=== PATIENT | female | born 1960 | race Caucasian/White ===

== ENCOUNTER 2016-04-16 09:02 | Day surgery (SDC) | payer BC ==
[~2016-04-16] VITALS: Ht 168.9 cm; Wt 75.2 kg
[~2016-04-16 09:02] MED LIST: ALLERGY4 MG PO; BLACK CHERRY; CLEOCIN HC150 MG/CAP PO; CRANBERRY FRUI475 MG PO; CYMBALTA 60MG60 MG PO; ESTRACE 1MG1 MG/TAB PO; FLONASE NASAL S16 GM NS; MULTIPLE VITAMI1 CAP PO; PROBIOTIC FORMU1 CAP PO; PROTONIX 40MG T40 MG PO; [UNRECOGNIZED DRUG - OTHER] TD
[2016-04-16] MEDS ORDERED: AMITIZA 8MCG8 MCG PO (09:27)
[2016-04-16] MEDS ORDERED: MOBIC15 MG PO (09:27)
[2016-04-16] MEDS ORDERED: NEXIUM 40MG40 MG PO (09:28)
[2016-04-16] MEDS ORDERED: SINGULAIR 110 MG/TAB PO (09:29)
[2016-04-16 10:05] VITALS: BP 118/65; PULSE 90; TEMP 97.7
[2016-04-16 10:50] VITALS: BP 135/75; PULSE 81; TEMP 97.2
[2016-04-16 11:05] VITALS: BP 128/58; PULSE 79
[2016-04-16 11:20] VITALS: BP 106/75; PULSE 82
[2016-04-16 11:35] VITALS: BP 117/43; PULSE 81
[2016-04-16 12:05] VITALS: BP 117/59; PULSE 90
== END 2016-04-16 12:30 | disposition home or self-care (01) ==
LOC: SDCO 09:02
DX: R05 Cough (principal); R09.3 Abnormal sputum; M41.9 Scoliosis, unspecified; Z86.19 Personal history of other infectious and parasitic diseases
CPT/HCPCS: J1956; J2704; J2920; J7120

== ENCOUNTER → 2016-05-22 | Outpatient (CLI) | payer BC ==
[~2016-05-22] MED LIST changes: +AMITIZA 8MCG8 MCG PO; +MOBIC15 MG PO; +NEXIUM 40MG40 MG PO; +SINGULAIR 110 MG/TAB PO
== END ==
LOC: COL.PUL 09:39
DX: R06.02 Shortness of breath (principal)
CPT/HCPCS: J7674

== ENCOUNTER → 2017-01-21 | Outpatient (CLI) | payer BC | LOC: COL.RAD 08:03 | DX: R14.2 Eructation (principal); R68.81 Early satiety; R11.0 Nausea; K58.9 Irritable bowel syndrome, unspecified | CPT/HCPCS: A9541 ==

== ENCOUNTER → 2023-08-29 | Outpatient (CLI) | payer OTHER ==
[~2023-08-29] MED LIST changes: +Iohexol 300 - 100 ML VIAL IV ONE; +NS 100 ML IV ONE
== END ==
LOC: COL.RAD 13:12
DX: R59.1 Generalized enlarged lymph nodes (principal); R91.8 Other nonspecific abnormal finding of lung field; K59.04 Chronic idiopathic constipation; R19.7 Diarrhea, unspecified
CPT/HCPCS: Q9967

== ENCOUNTER → 2023-10-10 | Outpatient (CLI) | payer OTHER ==
[2023-10-10] VITALS (11 sets, daily range): BP systolic 102–138; BP diastolic 56–80; PULSE 67–79; TEMP 98.2
[~2023-10-10] VITALS: Ht 170.2 cm; Wt 63.2 kg
[~2023-10-10] MED LIST changes: +DESYREL 50MG50 MG PO; +EUTHYROX25 MCG PO; +FLORAJEN A20 Billion PO; -Iohexol 300 - 100 ML VIAL IV ONE; +LIPITOR 40MG TA40 MG PO; +Midazolam 2 MG/2 ML VIAL IV SCH; -NS 100 ML IV ONE; +PRIL40 PO; +TRELEGY ELLIPT1 EAC1 IH; +ZOLOFT 50MG50 MG PO; +fentaNYL 50 MCG/ML 2 ML VIAL IV SCH
--- NOTE | 2023-10-10 13:45 | NUR ---
Pt to ct per wheelchair. Pt up and onto ct table in supine position. Monitor applied and O2 on at 2l/nc.
--- NOTE | 2023-10-10 14:00 | NUR ---
Dr Lozano into room and talks with pt.
--- NOTE | 2023-10-10 14:14 | NUR ---
Specimens obtained by Dr Lozano and placed in formalin and RPMI. Specimens labeled.
== END ==
LOC: COL.RAD 12:00
DX: R59.0 Localized enlarged lymph nodes (principal)
CPT/HCPCS: J2250; J3010

== ENCOUNTER → 2023-12-16 | Outpatient (CLI) | payer OTHER ==
[~2023-12-16] MED LIST changes: -Midazolam 2 MG/2 ML VIAL IV SCH; -fentaNYL 50 MCG/ML 2 ML VIAL IV SCH
== END ==
LOC: MC.RAD 11:14
DX: Z12.31 Encounter for screening mammogram for malignant neoplasm of breast (principal)